=== PATIENT | female | born 1990 | race Caucasian/White ===

== ENCOUNTER 2019-08-04 14:18 | Emergency (ER) | payer SELFPAY ==
[~2019-08-04] VITALS: Ht 167.6 cm; Wt 99.8 kg
[2019-08-04 15:08] VITALS: BP 122/82
[2019-08-04] MEDS ORDERED: BENZ100C PO (15:52)
[2019-08-04] MEDS ORDERED: AMOX500C PO (15:52)
--- NOTE | 2019-08-04 15:52 | PHYS DOC ---
Past Medical History Past Medical History: No Pertinent History Past Surgical History: Cholecystectomy, Tonsillectomy Alcohol Use: None Drug Use: None Adult General Chief Complaint Chief Complaint: FLU SYMPTOM HPI HPI Patient is a 28 year old female who presents with states she was running a fever yesterday of 102. Patient states since Thursday she has had nasal congestion, cough with yellow mucus production. Patient states she's having throat pain due to coughing. Patient's currently rating her pain an 8 out of 10. Patient states she's been taking ibuprofen, TheraFlu, NyQuil. Patient states she is not taking any medications today. Vital signs are within normal limits and she is afebrile this time. Review of Systems Review of Systems Constitutional: fever or chills [] HENT: nasal congestion or sore throat [] Respiratory: cough or denies shortness of breath [] All other systems were reviewed and found to be within normal limits, except as documented in this note. Allergies Allergies Allergies Coded Allergies Type Severity Reaction Last Updated Verified No Known Drug Allergies 01/05/16 No Physical Exam Physical Exam Constitutional: Well developed, well nourished, no acute distress, non-toxic appearance. [] HENT: Normocephalic, atraumatic, bilateral external ears normal, oropharynx moist, no oral exudates, nose normal. [] Eyes: PERRLA, EOMI, conjunctiva normal, no discharge. [] Neck: Normal range of motion, no tenderness, supple, no stridor. [] Cardiovascular:Heart rate regular rhythm, no murmur [] Lungs & Thorax: Bilateral breath sounds clear to auscultation [] Abdomen: Bowel sounds normal, soft, no tenderness, no masses, no pulsatile masses. [] Skin: Warm, dry, no erythema, no rash. [] Back: No tenderness, no CVA tenderness. [] Extremities: No tenderness, no cyanosis, no clubbing, ROM intact, no edema. [] Neurologic: Alert and oriented X 3, normal motor function, normal sensory function, no focal deficits noted. [] Psychologic: Affect normal, judgement normal, mood normal. [] Current Patient Data Vital Signs Vital Signs Date Time Temp Pulse Resp B/P (MAP) Pulse Ox O2 Delivery O2 Flow Rate FiO2 08/04/19 15:08 98.3 89 18 122/82 (95) 98 Room Air 98.3 Lab Values Laboratory Tests Test 08/04/19 15:00 Influenza Type A Antigen Negative (NEGATIVE) Influenza Type B Antigen Negative (NEGATIVE) EKG EKG [] Radiology/Procedures Radiology/Procedures [] Course & Med Decision Making Course & Med Decision Making Throat is reddened but there is no exudates or swelling. Bilateral tympanic are reddened. Lungs are clear to auscultation in all lobes. Skin pink warm and dry. Speaks in full clear sentences. Alert and oriented. Ambulatory with a steady gait. PERRLA. Denies chest pain, shortness of air, headache, dizziness, syncope, nausea, vomiting, abdominal pain, back pain, visual changes, numbness or tingling. Dragon Disclaimer Dragon Disclaimer This electronic medical record was generated, in whole or in part, using a voice recognition dictation system. Departure Departure Impression: Primary Impression: Otitis media Additional Impression: Upper respiratory infection Disposition: HOME, SELF-CARE Condition: STABLE Referrals: NO PCP (PCP) Patient Instructions: Otitis Media, Adult, Upper Respiratory Infection, Adult Additional Instructions: Follow-up with primary care provider if needed. Take medications as prescribed. Continue taking her [id number] cold medications and ibuprofen to help with her symptoms. Drink plenty of fluids. Scripts Amoxicillin (AMOXICILLIN) 500 Mg Capsule 1 CAP PO BID for 10 Days, #20 CAP Prov: VLADIMIR ROACH APRN 08/04/19 Benzonatate (TESSALON PERLE) 100 Mg Capsule 1 CAP PO TID, #30 CAP Prov: VLADIMIR ROACH APRN 08/04/19 Problem Qualifiers Primary Impression: Otitis media Otitis media type: suppurative Chronicity: acute Laterality: bilateral Recurrence: non-recurrent Spontaneous tympanic membrane rupture: without spontaneous rupture Qualified Codes: H66.003 - Acute suppurative otitis media without spontaneous rupture of ear drum, bilateral Additional Impression: Upper respiratory infection URI type: unspecified URI Qualified Codes: J06.9 - Acute upper respiratory infection, unspecified VLADIMIR ROACH APRN Aug 04, 2019 15:52
[2019-08-04 16:02] LABS: INFLUENZA A PATIENT NEGATIVE (NEGATIVE); INFLUENZA B PATIENT NEGATIVE (NEGATIVE)
== END 2019-08-04 16:13 | disposition home or self-care (01) ==
LOC: ER 14:18
DX: J06.9 Acute upper respiratory infection, unspecified (principal); H66.003 Acute suppurative otitis media without spontaneous rupture of ear drum, bilateral
CPT/HCPCS: 87804; 99284

== ENCOUNTER 2020-06-26 09:27 | Emergency (ER) | payer SELFPAY ==
[~2020-06-26] VITALS: Ht 167.6 cm; Wt 105.0 kg
[~2020-06-26 09:27] MED LIST: AMOX500C PO; BENZ100C PO
[2020-06-26] MEDS ORDERED: DEXAMETHASONE 4 MG TABLET PO ONE (10:45)
--- NOTE | 2020-06-26 11:15 | RAD ---
CHEST AP ONLY Clinical Indication: Reason: cough, fever / Comparison: Two-view chest February 08, 2008. Findings: The cardiomediastinal silhouette is normal. Lungs are clear. There is no pneumothorax. No pleural effusion is appreciated. No acute bone abnormality. IMPRESSION: No acute cardiopulmonary process. Electronically signed by: Tato Hopkins MD (06/26/2020 11:12 AM) [id number]
[2020-06-26 12:23] LABS: INFLUENZA A PATIENT NEGATIVE (NEGATIVE); INFLUENZA B PATIENT NEGATIVE (NEGATIVE)
[2020-06-26] MEDS ORDERED: GUAI120L35 PO (12:56)
[2020-06-26] MEDS ORDERED: BENZ100C PO (12:56)
--- NOTE | 2020-06-26 12:57 | PHYS DOC ---
Past Medical History Past Medical History: No Pertinent History Past Surgical History: Cholecystectomy, Tonsillectomy, Other Additional Past Surgical Histo: D&C Smoking Status: Never Smoker Alcohol Use: None Drug Use: None General Adult EDM: Chief Complaint: FEVER HPI: HPI: Patient is a 29 year old female presents with history of URI symptoms including fever- Tmax 103, nasal congestion, cough, and generalized malaise. Denies known exposure to COVID 19. Denies . Denies trauma. Denies dysuria. Denies . Review of Systems: Review of Systems: Constitutional: Reports fever and chills Eyes: Denies change in visual acuity, redness, or eye pain HENT: Reports nasal congestion; denies sore throat Respiratory: Reports cough; denies shortness of breath Cardiovascular: Denies chest pain or palpitations GI: Denies abdominal pain, nausea, vomiting, or diarrhea : Denies dysuria or hematuria Musculoskeletal: Denies back pain or joint pain Integument: Denies rash or skin lesions Neurologic: Denies headache, focal weakness or sensory changes Complete systems were reviewed and found to be within normal limits, except as d ocumented in this note. Current Medications: Current Medications Medications (Trade) Dose Ordered Sig/Oscar Start Time Stop Time Status Last Admin Dose Admin Dexamethasone (Decadron) 10 mg 1X ONCE 06/26/20 10:45 06/26/20 10:47 DC 06/26/20 12:14 10 MG Allergies: Allergies: Allergies Coded Allergies Type Severity Reaction Last Updated Verified No Known Drug Allergies 01/05/16 No Physical Exam: PE: Constitutional: Well developed, well nourished, no acute distress, non-toxic appearance HENT: Normocephalic, atraumatic Eyes: Conjunctiva normal, no discharge Neck: Normal range of motion, no tenderness, supple, no meningeal signs Lungs & Thorax: Equal chest rise and fall, no respiratory distress Abdomen: Soft, no tenderness Skin: Warm, dry, no erythema, no rash Extremities: No tenderness, ROM intact, no edema Neurologic: Alert and oriented X 3, no focal deficits noted Psychologic: Affect normal, judgement normal Current Patient Data: Labs: Laboratory Tests Test 06/26/20 10:11 06/26/20 11:22 POC Urine HCG, Qualitative Hcg negative (Negative) Influenza Type A Antigen Negative (NEGATIVE) Influenza Type B Antigen Negative (NEGATIVE) Vital Signs: Vital Signs Date Time Temp Pulse Resp B/P (MAP) Pulse Ox O2 Delivery O2 Flow Rate FiO2 06/26/20 10:04 98.3 98 16 148/66 (93) 100 Room Air 98.3 EKG: EKG: [] Radiology/Procedures: Radiology/Procedures: PROCEDURE: CHEST AP ONLY CHEST AP ONLY Clinical Indication: Reason: cough, fever / Comparison: Two-view chest February 08, 2008. Findings: The cardiomediastinal silhouette is normal. Lungs are clear. There is no pneumothorax. No pleural effusion is appreciated. No acute bone abnormality. IMPRESSION: No acute cardiopulmonary process. Electronically signed by: Tato Hopkins MD (06/26/2020 11:12 AM) [id number] Course & Med Decision Making: Course & Med Decision Making Pertinent Lab studies reviewed. (See chart for details) Patient presents with HPI and physical exam concerning for COVID19. COVID precautions in place. COVID test pending. Rapid influenza negative. CXR without acute process. Symptomatic steroid provided. Patient stable for discharge home with outpatient follow-up with PCP. Discussed findings and plan with patient, who acknowledges understanding and agreement. COVID-19 CRITERIA: The patient was evaluated during the global COVID-19 pandemic, and that diagnosis was suspected/considered upon their initial presentation. Their evaluation, treatment and testing was consistent with current guidelines for patients who present with complaints or symptoms that may be related to COVID-19. Michael Disclaimer: Michael Disclaimer: This electronic medical record was generated, in whole or in part, using a voice recognition dictation system. Departure Departure Impression: Primary Impression: Upper respiratory infection Qualified Codes: J06.9 - Acute upper respiratory infection, unspecified Additional Impression: Suspected 2019 novel coronavirus infection Disposition: 01 DC HOME SELF CARE/HOMELESS Condition: STABLE Referrals: NO PCP (PCP) Patient Instructions: Upper Respiratory Infection, Adult, [id number] Additional Instructions: You have been tested for or diagnosed with COVID-19. It is an infection caused by a new type of coronavirus. COVID-19 will cause cold-like or mild flu symptoms in most. It can cause more severe symptoms like problems breathing in some. There is no treatment for COVID-19. The body will clear the infection over time. Self-care will help to ease discomfort. Steps to Take: Self-Care Rest as needed. Healthy habits may help you feel better. Steps include: Choose healthy foods including fruits and vegetables. Drink water throughout the day. Get plenty of sleep each night. If you smoke, try to quit. It may ease breathing. Avoid alcohol. Keep Others Healthy The virus can spread to others. Droplets are released every time you sneeze or cough. The droplets can get into the mouth, nose, or eyes of people near you and lead to infection. To lower the chances of spreading COVID-19 to others: Stay at home until your doctor has said it is safe to leave. If you tested positive this will mean staying isolated until both of the following are true: At least 7 days have passed since the start of illness. You are free of fever for at least 72 hours without the use of medicine. During this time: - Avoid public areas, events, or transportation. Do not return to work or school until your doctor has said it is safe to do so. - Call ahead if you need to go to a medical center. Let them know you may have COVID-19. It will help them guide you where to go. They may also ask you to wear a facemask when you come to the office. - If you call for emergency medical services, let them know you may have COVID- 19. While at home: - Try to avoid close contact with others. Stay about 6 feet away. - If possible, spend most of your time in a separate room from others. - Use a face mask if you will be in close contact with others such as sharing a room or vehicle. - Have someone wipe down common surfaces in the home. Use household crumb packer every day on areas like doorknobs, counters, or sinks. - Cough or sneeze into a tissue. Throw the tissue away right after use. If a tissue is not available, cough or sneeze into your elbow. - Wash your hands often. Wash them after sneezing or coughing. Use soap and water and wash for at least 20 seconds. Alcohol based hand loom cleaner can be used if soap and water is not available. - Do not prepare food for others. Avoid sharing personal items like forks, spoons, or toothbrushes. - Avoid close contact with pets while you are sick. There is no evidence of the virus passing to pets. This is a safety step until more is known about this virus. Isolation can be frustrating. Social interaction can help. Keep in touch with friends and family through phone and tech options. You can still interact with others in your home, just keep a safe distance of about 6 feet. Follow-up: Your doctors office will check in with you to see if there are any changes in your health. You may be asked to keep track of symptoms to share with them. They will also let you know when you are clear to be in public again. Problems to Look Out For: Contact your doctor if your recovery is not going as you expect. Get emergency care if you have problems such as: - Trouble breathing - Nonstop chest pain or pressure - Changes in awareness, confusion, or problems waking - Lips or face have bluish color - Worsening of symptoms If you think you have an emergency, call for emergency medical services right away. As taken from [facility] Guaifenesin/Codeine Phosphate (Codeine-Guaifen 10-100 mg/5 ml) 120 Ml Liquid 10 ML PO Q8HRS PRN for COUGH, #120 LIQUID Prov: MAGALI SAUER DO 06/26/20 Benzonatate (TESSALON PERLE) 100 Mg Capsule 100 MG PO TID PRN for COUGH, #14 CAP Prov: MAGALI SAUER DO 06/26/20 COVID-19 Assessment: COVID-19 Patient Risks: Age 65 or older: No Sign of co-morbidity: No Exp to person + for COVID: No Exp to PUI: No Travel from affected area: No Lower respiratory symptoms: Yes Fever: Yes PPE Use: Full PPE with N95 mask or PAPR: Yes MAGALI SAUER DO Jun 26, 2020 12:56
--- NOTE | 2020-06-27 13:49 | NUR ---
IP: Attempted to call COVID results. No answer. Left a voicemail to return my call.
== END 2020-06-26 13:15 | disposition home or self-care (01) ==
LOC: ER 09:27
DX: J06.9 Acute upper respiratory infection, unspecified (principal); Z20.828 Contact with and (suspected) exposure to other viral communicable diseases
CPT/HCPCS: 71045; 81025; 87804; 99284; C9803; U0003